=== PATIENT | female | born 1975 | race Caucasian/White ===

== ENCOUNTER 2017-05-30 15:54 | Emergency (ER) | payer OTHER ==
[~2017-05-30] VITALS: Wt 64.0 kg
--- NOTE | 2017-05-30 17:03 | ERD ---
ER Documentation Chief Complaint Chief Complaint mejia dizziness HPI 42y/o female, previously healthy,presents to the emergency department with c/o headache located left parietal area, that started 3 ago. pain is sharp, rated 6/10, radiated to left shoulder. The symptoms are associated with left ear pain and plugging sensation. Denies fever, chills, N/V/D, no visual problems, no numbness or tingling. Patient refers history of previous episodes. Treatment attempted: None ROS SYSTEMIC symptoms: No fever, no chills, no night sweats EYE symptoms: No eyesight problems. OTOLARYNGEAL symptoms: No hearing loss. CARDIOVASCULAR symptoms: No chest pain or discomfort, no palpitations. PULMONARY symptoms: No dyspnea, no cough, no wheezing. GASTROINTESTINAL symptoms: No abdominal pain, no nausea, no vomiting SKIN no rashes MUSCULOSKELETAL symptoms: No arthralgias, no muscle aches. NEUROLOGY symptoms: + headache, no confusion, no syncope, no numbness or tingling. All systems reviewed and are negative except as per history of present illness. Medications Home Meds Active Scripts Baclofen* (Baclofen*) 10 Mg Tablet, 10 MG PO Q8 for MUSCLE SPASMS for 5 Days, # 15 TAB Prov:LIBETRAD VILLALOBOS MD 05/30/17 Hydrocodone/Acetaminophen ([place] 5-325 Tablet) 1 Each Tablet, 1 TAB PO Q6H Y for PAIN, #7 TAB Prov:LIBERTAD VILLALOBOS MD 05/30/17 Neomycin/Polymyxin/Hydrocort* (Cortisporin* Otic) 10 Ml Susp, 4 DROP LEFT EAR QID for 7 Days, EA Prov:LIBERTAD VILLALOBOS MD 05/30/17 Allergies Allergies: Coded Allergies: No Known Drug Allergy (Verified Allergy, Unknown, 05/30/17) PMhx/Soc History of Surgery: Yes (CHOLECYSTECTOMY) Anesthesia Reaction: No Hx Neurological Disorder: No Hx Respiratory Disorders: No Hx Cardiac Disorders: Yes (murmur) Hx Psychiatric Problems: No Hx Miscellaneous Medical Probl: No Hx Alcohol Use: No Hx Substance Use: No Hx Tobacco Use: No Physical Exam Vitals Vital Signs Date Time Temp Pulse Resp B/P Pulse Ox O2 Delivery O2 Flow Rate FiO2 05/30/17 16:04 98.4 66 20 117/63 99 Physical Exam Const: Alert, oriented, hydrated, in mild distress due to pain Head: Atraumatic Eyes: Normal Conjunctiva ENT: Normal External Ears, Nose and Mouth. Neck: Full range of motion..~ No meningismus. Resp: Clear to auscultation bilaterally Cardio: Regular rate and rhythm, no murmurs Abd: Soft, non tender, non distended. Normal bowel sounds Skin: No petechiae or rashes Back: No midline or flank tenderness Ext: No cyanosis, or edema Neur: Awake and alert Psych: Normal Mood and Affect Result Diagram: 05/30/17 1720 05/30/17 1720 Results 24 hrs Laboratory Tests Test 05/30/17 17:20 White Blood Count 9.810^3/ul Red Blood Count 4.7410^6/ul Hemoglobin 14.7g/dl Hematocrit 44.8% Mean Corpuscular Volume 94.5fl Mean Corpuscular Hemoglobin 31.0pg Mean Corpuscular Hemoglobin Concent 32.8g/dl Red Cell Distribution Width 12.9% Platelet Count 52207^3/UL Mean Platelet Volume 10.0fl Neutrophils % 53.6% Lymphocytes % 39.9% Monocytes % 4.3% Eosinophils % 1.5% Basophils % 0.5% Nucleated Red Blood Cells % 0.0/100WBC Neutrophils # 5.310^3/ul Lymphocytes # 3.910^3/ul Monocytes # 0.410^3/ul Eosinophils # 0.210^3/ul Basophils # 0.110^3/ul Nucleated Red Blood Cells # 0.010^3/ul Urine Color STRAW Urine Clarity CLEAR Urine pH 7.0 Urine Specific [place] 1.010 Urine Ketones NEGATIVEmg/dL Urine Nitrite NEGATIVEmg/dL Urine Bilirubin NEGATIVEmg/dL Urine Urobilinogen NEGATIVEmg/dL Urine Leukocyte Esterase NEGATIVELeu/ul Urine Hemoglobin NEGATIVEmg/dL Urine Glucose NEGATIVEmg/dL Urine Total Protein NEGATIVEmg/dl Urine Test NEGATIVE Sodium Level 145mmol/L Potassium Level 4.2mmol/L Chloride Level 105mmol/L Carbon Dioxide Level 28mmol/L Anion Gap 16 Blood Urea Nitrogen 14mg/dl Creatinine 0.64mg/dl Glucose Level 128mg/dl Calcium Level 9.4mg/dl Total Bilirubin 0.3mg/dl Direct Bilirubin 0.00mg/dl Indirect Bilirubin 0.3mg/dl Aspartate Amino Transf (AST/SGOT) 23IU/L Alanine Aminotransferase (ALT/SGPT) 34IU/L Alkaline Phosphatase 53IU/L Total Protein 7.8g/dl Albumin 4.9g/dl Globulin 2.90g/dl Albumin/Globulin Ratio 1.68 Procedures/MDM 42y/o female patient previously healthy, presents to the ED c/o left ear pain and left sided headache for 3 days. Physical exam showed inflammation, erythema of the left external canal, vital signs unremarkable. Differential diagnosis include but not limited to: Migraine, tension headache, otitis, sinusitis, allergies, less likely meningitis, intracranial bleeding. Labs requested showed: CBC, CMP in the normal range. Physical examination and clinical presentation consistent most likely with tension headache and otitis externa. During the ED course the patient received treatment with Toradol presenting overall improvement of the symptoms. Results and medical impression discussed with patient. The patient will be discharged home with a Rx for antibiotics otic drops and 3-day supply for [place] prn severe pain and baclofen. Side effects of prescribed narcotic medications (drowsiness, constipation, habituation) were reviewed. Side effects of prescribed muscle relaxants (drowsiness, habituation) were reviewed. If symptoms persist, worsen or new symptoms develop, then patient is instructed to follow-up with the primary care provider. If the patient is unable to see the primary care provider, then return to the ED immediately. Departure Diagnosis: Primary Impression: Tension headache Additional Impression: Otitis externa Condition: Stable Additional Instructions: Muchas ashley por [facility] para shipley servicio. Esperamos que en shipley visita a la deni de emergencia shipley problema medico haya sido solucionado y que se sienta mucho mejor. Para estar seguros que shipley mejoria sigue en proceso, le pedimos el favor de hacer shen kimberly de seguimiento medico con [place] doctor primario en los proximos 2-4 jalloh. Lleve con usted estos documentos y las medicinas recetadas. Si lu sintomas empeoran y no puede kalen a shipley doctor, por favor regrese a deni de emergencia. FONTANA-LIBERTAD CONTRERAS MD May 30, 2017 17:03
[2017-05-30] MEDS ORDERED: NPH10OT LEFT EAR (18:05)
[2017-05-30] MEDS ORDERED: BACL10TA PO (18:05)
[2017-05-30] MEDS ORDERED: HYDR-906 PO (18:05)
== END 2017-05-30 18:29 | disposition home or self-care (01) ==
LOC: FTE 15:54
DX: G44.209 Tension-type headache, unspecified, not intractable (principal); H60.92 Unspecified otitis externa, left ear
CPT/HCPCS: 80053; 81003; 84703; 85025; Z7502; 99284

== ENCOUNTER 2017-08-20 17:46 | Emergency (ER) | END 2017-08-20 21:57 | disposition left against medical advice (07) ==

== ENCOUNTER 2017-11-19 17:53 | Emergency (ER) | END 2017-11-20 00:32 | disposition home or self-care (01) ==

== ENCOUNTER 2019-02-03 17:48 | Observation (INO) | payer OTHER ==
[~2019-02-03] VITALS: Ht 157.5 cm; Wt 64.3 kg
[~2019-02-03 17:48] MED LIST: BACL10TA PO; HYDR-4011 PO; LORA1TAB PO; NPH10OT LEFT EAR
[2019-02-03] MEDS ORDERED: KETOROLAC 60 MG INJ IM STA (20:50)
[2019-02-03] MEDS ORDERED: IBUP800T48 PO (22:03)
[2019-02-03] MEDS ORDERED: CEPH-443 PO (22:03)
--- NOTE | 2019-02-03 22:06 | ERD ---
ER Documentation Chief Complaint Chief Complaint lump, breast pain on right side HPI History of Present Illness: 43-year-old female who denies a past history coming today with complaint of right breast pain. Patient denies any other associated symptoms. Patient reports that she had injury to her arm initially and she felt that the pain was coming from her arms and she would touch her breast and realize that the pain was actually coming from her breast. Patient noticed that it was actually her breast inside of her arm at approximately 4 PM today. Patient reports increasing severity of tenderness throughout the day. At home pharmacological/nonpharmacological treatment for symptoms: Denies Denies social concerns; Denies recent foreign travel ROS All systems reviewed and are negative except as per history of present illness. Medications Home Meds Active Scripts Ampicillin Sodium/Sulbactam Na (Unasyn 1.5 gm Vial) 1.5 Gm Vial, 1.5 GM IJ Q6 for abscess for 10 Days, VIAL Prov:ANDRES CAMPBELL M.D. 02/04/19 Ibuprofen* (Motrin*) 800 Mg Tab, 800 MG PO Q6H PRN for PAIN AND/OR INFLAMMATION, #30 TAB Prov:MOLINA FLEMING NP 02/03/19 Lorazepam* (Lorazepam*) 1 Mg Tablet, 1 MG PO Q8, #8 TAB Prov:PIA MITCHELL PA-C 11/19/17 Baclofen* (Baclofen*) 10 Mg Tablet, 10 MG PO Q8 for MUSCLE SPASMS for 5 Days, #15 TAB Prov:LIBERTAD VILLALOBOS MD 05/30/17 Hydrocodone/Acetaminophen ([place] 5-325 Tablet) 1 Each Tablet, 1 TAB PO Q6H PRN for PAIN, #7 TAB Prov:LIBERTAD VILLALOBOS MD 05/30/17 Neomycin/Polymyxin/Hydrocort* (Cortisporin* Otic) 10 Ml Susp, 4 DROP LEFT EAR QID for 7 Days, EA Prov:LIBERTAD VILLALOBOS MD 05/30/17 Discontinued Scripts Cephalexin* (Keflex*) 500 Mg Capsule, 500 MG PO QID for BREAST INFECTION for 10 Days, CAP Prov:MOLINA FLEMING NP 02/03/19 Allergies Allergies: Coded Allergies: No Known Drug Allergy (Verified Allergy, Unknown, 05/30/17) PMhx/Soc History of Surgery: Yes (CHOLECYSTECTOMY) Anesthesia Reaction: No Hx Neurological Disorder: No Hx Respiratory Disorders: No Hx Cardiac Disorders: Yes (murmur) Hx Psychiatric Problems: No Hx Miscellaneous Medical Probl: No Hx Alcohol Use: No Hx Substance Use: No Hx Tobacco Use: No Smoking Status: Never smoker FmHx Family History: diabetes; No coronary disease Physical Exam Vitals Vital Signs Date Temp Pulse Resp B/P (MAP) Pulse Ox O2 O2 Flow FiO2 Time Delivery Rate 02/03/19 97.8 67 18 113/74 99 18:25 (87) Physical Exam Const: No acute distress, afebrile Head: Atraumatic Eyes: Normal Conjunctiva ENT: Normal External Ears, Nose and Mouth. Neck: Full range of motion. No meningismus. Resp: Clear to auscultation bilaterally Cardio: Regular rate and rhythm, no murmurs Abd: Soft, non tender, non distended. No guarding, no masses, no rigidity Skin: No petechiae or rashes Back: No midline or flank tenderness Ext: No cyanosis, or edema Neur: Awake and alert x3, speaking in clear sentences, no focal deficits or facial asymmetry Psych: Normal Mood and Affect Breast: Mass noted to right breast at approximately 12:00, firm and tender to palpation; no surrounding erythema or edema. no drainage noted from the nipple. No skin changes Result Diagram: 02/04/19 0706 02/04/19 07 Results 24 hrs Laboratory Tests Test 02/03/19 20:18 02/03/19 21:13 02/03/19 22:50 02/03/19 22:51 POC Beta HCG, NEGATIVE Qualitative Urine Color YELLOW Urine Clarity CLOUDY Urine pH 8.0 Urine Specific 1.018 [place] Urine Ketones NEGATIVE mg/dL Urine Nitrite NEGATIVE mg/dL Urine Bilirubin NEGATIVE mg/dL Urine Urobilinogen NEGATIVE mg/dL Urine Leukocyte NEGATIVE Kathy/ul Esterase Urine Microscopic 2 /HPF RBC Urine Microscopic 1 /HPF WBC Urine Squamous FEW /HPF Epithelial Cells Urine Bacteria FEW /HPF Urine Mucus FEW /HPF Urine Hemoglobin NEGATIVE mg/dL Urine Glucose NEGATIVE mg/dL Urine Total Protein NEGATIVE mg/dl White Blood Count 8.8 10^3/ul Red Blood Count 4.38 10^6/ul Hemoglobin 13.3 g/dl Hematocrit 39.9 % Mean Corpuscular 91.1 fl Volume Mean Corpuscular 30.4 pg Hemoglobin Mean Corpuscular 33.3 g/dl Hemoglobin Concent Red Cell 13.4 % Distribution Width Platelet Count 251 10^3/UL Mean Platelet 9.7 fl Volume Immature 0.200 % Granulocytes % Neutrophils % 49.3 % Lymphocytes % 43.0 % Monocytes % 5.1 % Eosinophils % 1.8 % Basophils % 0.6 % Nucleated Red Blood 0.0 /100WBC Cells % Immature 0.020 10^3/ul Granulocytes # Neutrophils # 4.4 10^3/ul Lymphocytes # 3.8 10^3/ul Monocytes # 0.5 10^3/ul Eosinophils # 0.2 10^3/ul Basophils # 0.1 10^3/ul Nucleated Red Blood 0.0 10^3/ul Cells # Sodium Level 142 mmol/L Potassium Level 4.1 mmol/L Chloride Level 109 mmol/L Carbon Dioxide 24 mmol/L Level Anion Gap 9 Blood Urea Nitrogen 19 mg/dl Creatinine 0.57 mg/dl Est Glomerular > 60 mL/min Filtrat Rate mL/min Glucose Level 97 mg/dl Calcium Level 8.9 mg/dl Total Bilirubin 0.4 mg/dl Direct Bilirubin 0.00 mg/dl Indirect Bilirubin 0.4 mg/dl Aspartate Amino 18 IU/L Transf (AST/SGOT) Alanine 22 IU/L Aminotransferase (A LT/SGPT) Alkaline 77 IU/L Phosphatase Troponin I < 0.012 ng/ml Total Protein 7.0 g/dl Albumin 4.0 g/dl Globulin 3.00 g/dl Albumin/Globulin 1.33 Ratio Prothrombin Time 13.5 Sec Prothrombin Time 1.1 Ratio INR International 1.02 Normalized Ratio Activated 27.1 Sec Partial Thromboplas t Time Test 02/04/19 00:33 02/04/19 03:03 Lactic Acid Level 0.8 mmol/L 1.2 mmol/L Current Medications Medications Dose Sig/Dane Start Time Status Last (Trade) Ordered Route PRN Stop Time Admin Dose Reason Admin Ketorolac 60 mg ONCE STAT 02/03/19 DC 02/03/19 Tromethamine IM 20:50 02/03/19 21:58 (Toradol) 20:51 Sodium 1,900 ml BOLUS OVER 2 02/03/19 DC 02/03/19 Chloride HOURS ONCE 22:32 02/03/19 22:54 (NS) IV* 22:36 Morphine 4 mg ONCE ONCE 02/03/19 DC Sulfate IV 22:35 02/03/19 (morphine) 22:36 Ondansetron 4 mg ONCE ONCE 02/03/19 DC HCl (Zofran IV 22:35 02/03/19 Inj) 22:36 Ampicillin 100 ml @ ONCE ONCE 02/04/19 DC Sodium/ 100 mls/hr IVPB 00:30 02/04/19 Sulbactam 00:30 Sodium Ampicillin 100 ml @ ONCE IVPB 02/04/19 DC 02/04/19 Sodium/ 100 mls/hr 00:30 02/04/19 00:59 Sulbactam 00:31 Sodium Ondansetron 4 mg BRIDGE ORDER 02/04/19 DC HCl (Zofran PRN IV 02:00 02/04/19 Inj) NAUSEA/VOMITI 18:27 NG 650 mg ER BRIDGE 02/04/19 DC Acetaminophen PRN PO 02:00 02/04/19 (Tylenol .MILD PAIN 18:27 Tab) 1-3 OR TEMP 1 tab Q6H PRN 02/04/19 DC 02/04/19 Acetaminophen PO PAIN 03:00 02/04/19 15:56 / 18:27 Hydrocodone Bitart ([place] (5/325)) IV Flush 3 ml PER 02/04/19 DC (NS 3 ml) PROTOCOL IV 03:00 02/04/19 18:27 Ondansetron 4 mg Q6H PRN 02/04/19 DC HCl (Zofran PO 03:00 02/04/19 Tab) NAUSEA/VOMITI 18:27 NG 650 mg Q6H PRN 02/04/19 DC Acetaminophen PO .PAIN 1-3 03:00 02/04/19 (Tylenol OR TEMP 18:27 Tab) Docusate 100 mg Q12H PRN 02/04/19 DC Sodium PO 03:00 02/04/19 (Colace) .CONSTIPATION 18:27 Famotidine 20 mg Q12 PO 02/04/19 DC 02/04/19 (Pepcid) 03:00 02/04/19 08:52 18:27 Procedures/MDM ED COURSE: ED course includes a thorough examination and history. The patient was stable throughout ED course. I kept the patient and/or family informed of laboratory and diagnostic imaging results throughout the ED course. LABS: CBC: no e/o of systemic infection or severe anemia CMP: no e/o severe acidosis, alkalosis, renal failure, diabetic ketoacidosis, liver disease Coagulation studies within normal limits Urinalysis negative for infection Troponin negative Lactic acid within normal limits Urine negative MEDICATIONS GIVEN IN ER: Ketorolac Patient tolerated medication well with no adverse reactions. Patient reported improvement in pain. DIAGNOSTIC IMAGING: Read by radiologist. IMPRESSION: 1. This study was not designed to assess for neoplasm. Neoplasm cannot be exclud ed on the basis of this study. 2. Large dominant 2.3 cm cystic lesion with internal debris at the 11 o'clock position of the right breast. Abscess must be excluded. Further evaluation is warranted and thus surgical consultation is advised. Neoplasm is a less likely. 3. Several other smaller cystic lesions seen within the right breast, too small to characterize, measuring less than 1 cm in maximal dimension. Small benign cysts are most likely. 4. Small solid hypoechoic lesion within the left breast, sub-centimeter size and of uncertain etiology. Follow-up is advised. Fibroadenoma could have this appearance. Intramammary lymph node is within the differential. RPTAT: PP .Alexei Rodriguez MD, MD Date Time Electronically viewed and signed by .Alexei Rodriguez MD, MD on 02/03/2019 22:07 PROCEDURES: None. MEDICAL DECISION MAKING: Low suspicion for life-threatening medical emergency. Physician consultation with ED Dr. Adkins. Due to history and physical, will initiate further blood testing to rule out sepsis or systemic infection. Patient reassessment at 2230: Results discussed. Plan of care updated to patient. Patient verbalized understanding of plan of care as well as . Additional orders placed for morphine for pain with prophylactic Zofran for nausea. Sepsis work-up initiated. Otherwise healthy patient presenting with constellation of symptoms likely representing as characterized by history, physical exam findings [, radiologic/lab findings]. Patient reassessment @ 2300: Patient hemodynamically stable. No respiratory distress, otherwise relatively well appearing and nontoxic. Disposition given. DISPOSITION: Admission pending, care transferred to AZAEL Hurd At this time, patient is stable for discharge and outpatient management. I have instructed the patient to follow-up with his/her primary care physician in 1-2 days. I have discussed with the patient the possibility of needing to see a specialist for further workup and imaging studies if symptoms persist. I have instructed the patient to promptly return to the ER for any new or worsening symptoms including increased pain, fever, nausea, vomiting, weakness or LOC. The patient and/or family expressed understanding of and agreement with this plan. All questions were answered. Home care instructions were provided. DISCLAIMER: Inadvertent spelling and grammatical errors are likely due to EHR/dictation software use and do not reflect on the overall quality of patient care. Also, please note that the electronic time recorded on this note does not necessarily reflect the actual time of the patient encounter. Departure Diagnosis: Primary Impression: Breast pain Condition: MOLINA Rodriguez NP Feb 03, 2019 22:06 DIANNA GILL Feb 03, 2019 23:56
[2019-02-03] MEDS ORDERED: SODIUM CHLORIDE 0.9% 1L BAG IV* ONE (22:32)
[2019-02-03] MEDS ORDERED: ONDANSETRON 4 MG INJ IV ONE (22:35)
[2019-02-03] MEDS ORDERED: morphine 4 MG/ML VIAL IV ONE (22:35)
[2019-02-04] MEDS ORDERED: AMPICILLIN/SULB 3 GM/NS (PMX) 100 ML IVPB ONE (00:30)
[2019-02-04] MEDS ORDERED: AMPICILLIN/SULB 3 GM/NS (PMX) 100 ML IVPB SCH (00:30)
[2019-02-04] MEDS ORDERED: ONDANSETRON 4 MG INJ IV PRN (02:00)
[2019-02-04] MEDS ORDERED: ACETAMINOPHEN 325 MG TAB PO PRN ×2 (02:00→03:00)
[2019-02-04] MEDS ORDERED: [UNRECOGNIZED DRUG - CODE] IJ (02:43)
[2019-02-04] MEDS ORDERED: DOCUSATE SODIUM 100 MG CAP PO PRN (03:00)
[2019-02-04] MEDS ORDERED: HYDROCODONE/APAP (5/325) TAB PO PRN (03:00)
[2019-02-04] MEDS ORDERED: NACL 0.9% 3 ML SYG IV SCH (03:00)
[2019-02-04] MEDS ORDERED: ONDANSETRON 4 MG TAB PO PRN (03:00)
[2019-02-04] MEDS: FAMOTIDINE 20 MG TAB PO SCH ×2 (04:30→08:52)
[2019-02-04 04:38] VITALS: Ht 157.5 cm; Wt 64.3 kg
[2019-02-04 04:46] VITALS: BP 102/54; PULSE 59; RESP 16
[2019-02-04] MEDS: LORAZEPAM 1 MG TAB PO SCH ×2 (06:00→14:00)
[2019-02-04] MEDS: BACLOFEN 10 MG TAB PO SCH ×2 (06:00→14:00)
[2019-02-04 08:37] VITALS: BP 103/55; PULSE 76; RESP 18
[2019-02-04] MEDS: ENOXAPARIN 40 MG/0.4 ML SYG SC SCH ×2 (08:55→09:00)
[2019-02-04 14:00] VITALS: BP 98/61; PULSE 61; RESP 18
--- NOTE | 2019-02-04 14:22 | HP ---
DATE OF ADMISSION: 02/04/2019 CHIEF COMPLAINT: Right breast pain for 2 days and a palpable lump. HISTORY OF PRESENT ILLNESS: A 43-year-old female with unremarkable past medical history who presented to emergency room with complaints of right breast pain. The patient denies any trauma to the breast. She denies any history of breast cancer. Initial evaluation included ultrasound of the breast. This study shows large, dominant 2.3 cm cystic lesion with internal debris at the 11 o'clock position of the right breast. Abscess must be excluded. Several other smaller cystic lesions were seen within the right breast too small to characterize. A small solid hypoechoic lesion within the l eft breast was noted. PAST MEDICAL HISTORY: None. PAST SURGICAL HISTORY: Status post cholecystectomy. MEDICATIONS PRIOR TO ADMISSION: 1. Ibuprofen. 2. Keflex. 3. Lorazepam. 4. Baclofen. 5. [place]. 6. Cortisporin otic suspension. SOCIAL HISTORY: The patient lives at home. She denies tobacco and drinks alcohol on rare social occ asions. PHYSICAL EXAMINATION: GENERAL: Well-developed, well-nourished female who is in no apparent distress. VITAL SIGNS: Stable. She is afebrile. HEENT: Extraocular muscles intact. Pupils equal and reactive to light bilaterally. Sclerae are ani cteric. Oropharynx is clear and moist. NECK: Supple, no JVD, no carotid bruits. LUNGS: Clear to auscultation bilaterally. CARDIAC: Right breast with a palpable lump which is tender to palpation. There is no surrounding er ythema or edema. No drainage noted from the nipple. ABDOMEN: Soft, nontender, nondistended, normoactive bowel sounds. EXTREMITIES: No clubbing, cyanosis, or edema. NEUROLOGICAL: Nonfocal. LABORATORY DATA: White blood cell count is 6.9, hemoglobin 12.4, platelet count is 226,000. BMP wit hin normal limits. TSH is 2.3. ASSESSMENT: A 43-year-old female with right breast lump which is fluid-filled and tender to palpatio n. Rule out abscess. PLAN: Admit to med/surg. Keep patient n.p.o. Continue IV Unasyn. Surgical consultation was porfirio mcgarry. Dictated By: DAV PREDOMO/CARLINE Conf#: [id number] DID#: [id number] CC: ANDRES CAMPBELL MD; MARC MALDONADO MD;*[facility]*
--- NOTE | 2019-02-04 15:57 | CONS ---
Assessment/Plan Assessment/Plan Assessment/Plan (Daily) Right breast mass. Most probably fibromyoma. However sarcoma or breast cancer cannot be excluded. Patient need full ambulatory work-up that will include mammogram possible MRI, possible core needle biopsy possible excisional biopsy. Patient can be safely discharged and referred her primary care physician to be referred to the surgeon in network to perform the work-up. Consultation Date/Type/Reason Admit Date/Time Feb 04, 2019 at 03:42 Date of Consultation: Feb 04, 2019 Type of Consult Surgical Reason for Consultation Right breast mass Date/Time of Note DATE: 02/04/19 TIME: 15:53 Hx of Present Illness A 43-year-old female with unremarkable past medical history who presented to emergency room with complaints of right breast pain. The patient denies any trauma to the breast. She denies any history of breast cancer. Initial evaluation included ultrasound of the breast. This study shows large, dominant 2.3 cm cystic lesion with internal debris at the 11 o'clock position of the right breast. Abscess must be excluded. Several other smaller cystic lesions were seen within the right breast too small to characterize. A small solid hypoechoic lesion within the left breast was noted. Constitutional: no complaints, improved Eyes: no complaints ENT: no complaints Respiratory: no complaints Cardiovascular: no complaints Gastrointestinal: no complaints Genitourinary: no complaints Musculoskeletal: no complaints Skin: no complaints Neurologic: no complaints Endocrine: no complaints Lymphatic: no complaints Psychological: no complaints, nl mood/affect Immunologic: no complaints Past Medical History Medical History: no pertinent history Home Meds Active Scripts Ampicillin Sodium/Sulbactam Na (Unasyn 1.5 gm Vial) 1.5 Gm Vial, 1.5 GM IJ Q6 for abscess for 10 Days, VIAL Prov:ANDRES CAMPBELL M.D. 02/04/19 Ibuprofen* (Motrin*) 800 Mg Tab, 800 MG PO Q6H PRN for PAIN AND/OR INFLAMMATION, #30 TAB Prov:MOLINA FLEMING NP 02/03/19 Lorazepam* (Lorazepam*) 1 Mg Tablet, 1 MG PO Q8, #8 TAB Prov:PIA MITCHELL PA-C 11/19/17 Baclofen* (Baclofen*) 10 Mg Tablet, 10 MG PO Q8 for MUSCLE SPASMS for 5 Days, #15 TAB Prov:LIBERTAD VILLALOBOS MD 05/30/17 Hydrocodone/Acetaminophen ([place] 5-325 Tablet) 1 Each Tablet, 1 TAB PO Q6H PRN for PAIN, #7 TAB Prov:LIBERTAD VILLALOBOS MD 05/30/17 Neomycin/Polymyxin/Hydrocort* (Cortisporin* Otic) 10 Ml Susp, 4 DROP LEFT EAR QID for 7 Days, EA Prov:LIBERTAD VILLALOBOS MD 05/30/17 Discontinued Scripts Cephalexin* (Keflex*) 500 Mg Capsule, 500 MG PO QID for BREAST INFECTION for 10 Days, CAP Prov:MOLINA FLEMING NP 02/03/19 Medications Current Medications Ondansetron HCl (Zofran Inj) 4 mg BRIDGE ORDER PRN IV NAUSEA/VOMITING; Start 02/04/19 at 02:00; Stop 02/05/19 at 01:59 Acetaminophen (Tylenol Tab) 650 mg ER BRIDGE PRN PO .MILD PAIN 1-3 OR TEMP; S tart 02/04/19 at 02:00; Stop 02/05/19 at 01:59 Baclofen (Lioresal) 10 mg Q8 PO ; Start 02/04/19 at 06:00 Acetaminophen/ Hydrocodone Bitart ([place] (5/325)) 1 tab Q6H PRN PO PAIN; Start 02/04/19 at 03:00 Lorazepam (Ativan) 1 mg Q8 PO ; Start 02/04/19 at 06:00 IV Flush (NS 3 ml) 3 ml PER PROTOCOL IV ; Start 02/04/19 at 03:00 Ondansetron HCl (Zofran Tab) 4 mg Q6H PRN PO NAUSEA/VOMITING; Start 02/04/19 at 03:00 Acetaminophen (Tylenol Tab) 650 mg Q6H PRN PO .PAIN 1-3 OR TEMP; Start 02/04/19 at 03:00 Docusate Sodium (Colace) 100 mg Q12H PRN PO .CONSTIPATION; Start 02/04/19 at 03:00 Famotidine (Pepcid) 20 mg Q12 PO Last administered on 02/04/19at 08:52; Admin Dose 20 MG; Start 02/04/19 at 03:00 Enoxaparin Sodium (Lovenox) 40 mg DAILY SC ; Start 02/04/19 at 09:00 Allergies: Coded Allergies: No Known Drug Allergy (Verified Allergy, Unknown, 05/30/17) Past Surgical History Past Surgical Hx: no surgical history Family History Significant Family History: no pertinent family hx (Except her aunt has a cancer of the uterus.) Social History Smoking Status: Never smoker Exam/Review of Systems Exam Vitals Vital Signs Date Temp Pulse Resp B/P (MAP) Pulse Ox O2 O2 Flow FiO2 Time Delivery Rate 02/04/19 98.6 61 18 98/61 (73) 96 14:00 02/04/19 Room Air 08:37 Intake and Output 02/03/19 02/03/19 02/04/19 1515:00 23:00 07:00 IntakeIntake Total 2000 ml BalanceBalance 2000 ml Constitutional: alert, oriented, well developed Psych: no complaints, nl mood/affect Head: normocephalic, atraumatic Eyes: nl conjunctiva, EOMI, nl lids, nl sclera, PERRL ENMT: nl external ears & nose, nl lips & teeth, nl nasal mucosa & septum Neck: supple, non-tender Respiratory: clear to auscultation, normal air movement Cardiovascular: regular rate and rhythm, nl pulses Gastrointestinal: soft, nl liver, spleen, non-tender Musculoskeletal: nl extremities to inspection, nl gait and stance Extremities: normal pulses Neurological: [employer] II-XII intact, nl mental status, nl speech, nl strength Skin: nl turgor; No rash or lesions Lymph: nl lymph nodes Additional Comments Left breast is normal on exam. In the right breast there is a solid mass approximately 2 cm diameter at 11 o'clock position right outer upper quadrant just next to the nipple. No evidence of nipple discharge. No lymph nodes both sides. The mass is mobile and round. There are no overlying skin changes Results Result Diagram: 02/04/19 0706 02/04/19 0706 Results 24hrs Laboratory Tests Test 02/03/19 20:18 02/03/19 21:13 02/03/19 22:50 02/03/19 22:51 POC Beta HCG, NEGATIVE Qualitative Urine Color YELLOW Urine Clarity CLOUDY A Urine pH 8.0 Urine Specific [place] 1.018 Urine Ketones NEGATIVE Urine Nitrite NEGATIVE Urine Bilirubin NEGATIVE Urine Urobilinogen NEGATIVE Urine Leukocyte Esterase NEGATIVE Urine Microscopic RBC 2 Urine Microscopic WBC 1 Urine Squamous FEW Epithelial Cells Urine Bacteria FEW A Urine Mucus FEW A Urine Hemoglobin NEGATIVE Urine Glucose NEGATIVE Urine Total Protein NEGATIVE White Blood Count 8.8 Red Blood Count 4.38 Hemoglobin 13.3 Hematocrit 39.9 Mean Corpuscular Volume 91.1 Mean Corpuscular 30.4 Hemoglobin Mean Corpuscular 33.3 Hemoglobin Concent Red Cell Distribution 13.4 Width Platelet Count 251 Mean Platelet Volume 9.7 Immature Granulocytes % 0.200 Neutrophils % 49.3 Lymphocytes % 43.0 Monocytes % 5.1 Eosinophils % 1.8 Basophils % 0.6 Nucleated Red Blood 0.0 Cells % Immature Granulocytes # 0.020 Neutrophils # 4.4 Lymphocytes # 3.8 H Monocytes # 0.5 Eosinophils # 0.2 Basophils # 0.1 Nucleated Red Blood 0.0 Cells # Sodium Level 142 Potassium Level 4.1 Chloride Level 109 Carbon Dioxide Level 24 Anion Gap 9 Blood Urea Nitrogen 19 Creatinine 0.57 Est Glomerular Filtrat > 60 Rate mL/min Glucose Level 97 Calcium Level 8.9 Total Bilirubin 0.4 Direct Bilirubin 0.00 Indirect Bilirubin 0.4 Aspartate Amino 18 Transf (AST/SGOT) Alanine 22 Aminotransferase (ALT/SG PT) Alkaline Phosphatase 77 Troponin I < 0.012 Total Protein 7.0 Albumin 4.0 Globulin 3.00 Albumin/Globulin Ratio 1.33 Prothrombin Time 13.5 Prothrombin Time Ratio 1.1 INR International 1.02 Normalized Ratio Activated 27.1 Partial Thromboplast Time Test 02/04/19 00:33 02/04/19 03:03 02/04/19 07:06 Lactic Acid Level 0.8 1.2 White Blood Count 6.9 # Red Blood Count 4.00 L Hemoglobin 12.4 Hematocrit 36.9 L Mean Corpuscular Volume 92.3 Mean Corpuscular 31.0 Hemoglobin Mean Corpuscular 33.6 Hemoglobin Concent Red Cell Distribution 13.3 Width Platelet Count 226 Mean Platelet Volume 9.9 Immature Granulocytes % 0.300 Neutrophils % 47.2 Lymphocytes % 42.6 Monocytes % 7.6 Eosinophils % 1.7 Basophils % 0.6 Nucleated Red Blood 0.3 H Cells % Immature Granulocytes # 0.020 Neutrophils # 3.2 Lymphocytes # 2.9 Monocytes # 0.5 Eosinophils # 0.1 Basophils # 0.0 Nucleated Red Blood 0.0 Cells # Sodium Level 142 Potassium Level 4.1 Chloride Level 112 H Carbon Dioxide Level 24 Anion Gap 6 Blood Urea Nitrogen 16 Creatinine 0.64 Est Glomerular Filtrat > 60 Rate mL/min Glucose Level 95 Hemoglobin A1c 4.9 Calcium Level 8.3 L Thyroid Stimulating 2.300 Hormone (TSH) Medications Medication Current Medications Ondansetron HCl (Zofran Inj) 4 mg BRIDGE ORDER PRN IV NAUSEA/VOMITING; Start 02/04/19 at 02:00; Stop 02/05/19 at 01:59 Acetaminophen (Tylenol Tab) 650 mg ER BRIDGE PRN PO .MILD PAIN 1-3 OR TEMP; Start 02/04/19 at 02:00; Stop 02/05/19 at 01:59 Baclofen (Lioresal) 10 mg Q8 PO ; Start 02/04/19 at 06:00 Acetaminophen/ Hydrocodone Bitart ([place] (5/325)) 1 tab Q6H PRN PO PAIN; Start 02/04/19 at 03:00 Lorazepam (Ativan) 1 mg Q8 PO ; Start 02/04/19 at 06:00 IV Flush (NS 3 ml) 3 ml PER PROTOCOL IV ; Start 02/04/19 at 03:00 Ondansetron HCl (Zofran Tab) 4 mg Q6H PRN PO NAUSEA/VOMITING; Start 02/04/19 at 03:00 Acetaminophen (Tylenol Tab) 650 mg Q6H PRN PO .PAIN 1-3 OR TEMP; Start 02/04/19 at 03:00 Docusate Sodium (Colace) 100 mg Q12H PRN PO .CONSTIPATION; Start 02/04/19 at 03:00 Famotidine (Pepcid) 20 mg Q12 PO Last administered on 02/04/19at 08:52; Admin Dose 20 MG; Start 02/04/19 at 03:00 Enoxaparin Sodium (Lovenox) 40 mg DAILY SC ; Start 02/04/19 at 09:00 RICARDO MALDONADO MD Feb 04, 2019 15:57
[2019-02-04 16:00] VITALS: BP 103/78; PULSE 63
--- NOTE | 2019-02-04 20:52 | PDOCDIS ---
Discharge Instructions CONDITION [id number] Patient Condition: [id number] Good HOME CARE INSTRUCTIONS: [id number] Diet Instructions: [id number] Regular ACTIVITY: [id number] Activity Restrictions: [id number] No Restrictions FOLLOW UP/APPOINTMENTS Follow-up Plan pcp 1 week Gen surg DAV Parra MD Feb 04, 2019 20:52
--- NOTE | 2019-02-05 16:25 | DS ---
DATE OF ADMISSION: 02/04/2019 DATE OF DISCHARGE: 02/04/2019 DISCHARGE DIAGNOSES: 1. A 43-year-old female with right breast mass, most probably fibromyoma. 2. Rule out malignant lesion. HOSPITAL COURSE: A 43-year-old female with unremarkable past medical history, presented to emergency room with complaint of right breast lump that was tender to palpation. There was no injury or trauma to the area. Ultrasound showed a 2.3 cm cystic lesion with internal debris and fluid at 1 1 o'clock position. The patient was evaluated by Dr. Peña. There was no need for urgent interventi on. He recommended discharge with close followup as outpatient. The patient needs a biopsy and poss ible MRI of the right breast. She may eventually need excisional biopsy. The patient was discharged home in a stable condition. I requested followup with PCP and general surgery. The case was discus sed with Dr. Peña who recommended the discharge. Dictated By: DAV SANCHEZ MD SK/NTS Conf#: [id number] DID#: [id number] CC: RICARDO PEÑA MD; ANDRES CAMPBELL MD;*EndCC*
== END 2019-02-04 18:00 | disposition home or self-care (01) ==
LOC: FTE 17:48 → PP2 02-04 03:42
PROVIDERS: ADMIT Internal Medicine; ATTEND Internal Medicine
DX: N63.0 Unspecified lump in unspecified breast (principal)
CPT/HCPCS: 76641; 80048; 80053; 81001; 81025; 83036; 83605; 84443; 84484; 85025; 85610; 85730; 87040; 93005; 96365; 96372; J0295; J1885; J7030; Z7500; Z7502; Z7610; G0378; J1650